=== PATIENT | female | born 1965 | race Native Hawaiian/Other Pacific Islander ===

== ENCOUNTER 2018-11-30 16:32 | Emergency (ER) | payer OTHER ==
[~2018-11-30] VITALS: Ht 160 cm; Wt 95.3 kg
[2018-11-30 17:25] VITALS: BP 160/82; TEMP 102
== END 2018-11-30 17:25 | disposition home or self-care (01) ==
LOC: ED 16:32
DX: J11.1 Influenza due to unidentified influenza virus with other respiratory manifestations (principal)
CPT/HCPCS: 87502; 87651; 99283

== ENCOUNTER 2019-02-05 08:42 | Outpatient (CLI) | payer OTHER | END 2019-02-05 19:34 | disposition home or self-care (01) | LOC: MAMMO 08:42 | DX: Z12.13 Encounter for screening for malignant neoplasm of small intestine (principal) ==

== ENCOUNTER 2019-11-10 14:13 | Outpatient (CLI) | payer OTHER | END 2019-11-10 21:17 | disposition home or self-care (01) | LOC: MAMMO 14:13 | DX: R92.8 Other abnormal and inconclusive findings on diagnostic imaging of breast (principal) ==

== ENCOUNTER 2020-05-09 14:42 | Outpatient (CLI) | payer OTHER | END 2020-05-09 19:42 | disposition home or self-care (01) | LOC: MAMMO 14:42 | DX: Z12.31 Encounter for screening mammogram for malignant neoplasm of breast (principal) ==

== ENCOUNTER 2020-05-24 08:19 | Outpatient (CLI) | payer OTHER | END 2020-05-24 23:56 | disposition home or self-care (01) | LOC: MAMMO 08:19 | DX: Z12.31 Encounter for screening mammogram for malignant neoplasm of breast (principal); R92.8 Other abnormal and inconclusive findings on diagnostic imaging of breast ==